=== PATIENT | female | born 1985 | race Hispanic/Latino ===

== ENCOUNTER 2023-05-05 04:55 | Emergency (ER) | payer MEDICAID, OTHER ==
[~2023-05-05] VITALS: Ht 167.6 cm; Wt 91.7 kg
[2023-05-05 05:22] LABS: BASOPHILS % (AUTO) 0.3 % (0.0-5.0); EOSINOPHILS % (AUTO) 1.2 % (0.0-8.0); HEMATOCRIT 44.8 % (36-48); MEAN CORPUSCULAR HEMOGLOBIN 31.2 pg (27.0-33.0); MEAN CORPUSCULAR VOLUME 89.1 fL (79-99); MONOCYTES % (AUTO) 9.4 % (3.0-13.0); NEUTROPHILS % (AUTO) 78.5 % (40.0-77.0); PLATELET COUNT (AUTO) 263 K/uL (130-400); RED BLOOD CELL COUNT(AUTO) 5.03 MIL/uL (4.00-5.50); RED CELL DISTRIBUTION WIDTH 13.1 % (11.0-15.5); WHITE BLOOD COUNT (AUTO) 12.1 K/uL (4.8-10.8)
[2023-05-05] MEDS ORDERED: ONDANSETRON 4MG INJ ONE (05:25)
[2023-05-05] MEDS ORDERED: LACTATED RINGERS 1000ML 1,000 ML IV ONE (05:30)
[2023-05-05] MEDS ORDERED: MORPHINE 2 MG SYG IVP ONE (05:30)
[2023-05-05 05:36] LABS: ALANINE AMINOTRANSFERASE 17 U/L (12-78); ALBUMIN 3.9 g/dL (3.5-5.0); AMYLASE 29 U/L (25-115); ASPARTATE AMINOTRANSFERASE 11 U/L (10-37); CARBON DIOXIDE 18 mmol/L (21-32); CHLORIDE 96 mmol/L (101-111); CREATININE 0.7 mg/dL (0.5-1.5); GLOMERULAR FILTR. RATE CALC 114 mL/min (>90); GLUCOSE,RANDOM 117 mg/dL (70-105); SODIUM SERUM 133 mmol/L (136-145); TOTAL PROTEIN, SERUM 8.5 g/dL (6.0-8.3); UREA NITROGEN, BLOOD 8 mg/dL (7-18)
[2023-05-05 05:38] LABS: LIPASE < 50 U/L (114-286); POTASSIUM 2.7 mmol/L (3.5-5.1)
[2023-05-05] MEDS ORDERED: IOHEXOL 350 MG/ML 100ML INFUS..BTL IV ONE (06:48)
[2023-05-05] MEDS ORDERED: POTASSIUM CHLORIDE 20MEQ/10ML 10 MEQ in 0.9%NACL 50ML 50 ML IV SCH (07:00)
[2023-05-05] MEDS ORDERED: POTASSIUM BICARB/CIT AC 25 MEQ TABLET.EFF PO ONE (07:00)
[2023-05-05] MEDS ORDERED: POTASSIUM CHLORIDE 20MEQ/100ML 0 ML IV ONE (07:26)
[2023-05-05 07:39] VITALS: BP 134/80
[2023-05-05] MEDS ORDERED: POTASSIUM CHLORIDE 10MEQ/100ML 100 ML IV SCH (08:00)
[2023-05-05] MEDS ORDERED: POLY17PO4 PO (09:56)
[2023-05-05] MEDS ORDERED: LACTULOSE 20 GM/30 ML UDCUP PO ONE (10:00)
== END 2023-05-05 13:36 | disposition home or self-care (01) ==
LOC: EDH 04:55
DX: K59.00 Constipation, unspecified (principal); I10 Essential (primary) hypertension; Z98.890 Other specified postprocedural states
CPT/HCPCS: 99285; 74177; 96365; 71045; 96361; 96375; 96366; 82150; 83735; 80053; 84703; 83690; 85025; 36415; J7120; J2270; J2405; Q9967; J3480

== ENCOUNTER 2023-05-06 20:43 | Inpatient (IN) | payer OTHER ==
[~2023-05-06] VITALS: Ht 167.6 cm; Wt 91.2 kg
[~2023-05-06 20:43] MED LIST: POLY17PO4 PO
[2023-05-06 21:26] LABS: BASOPHILS % (AUTO) 0.4 % (0.0-5.0); EOSINOPHILS % (AUTO) 0.3 % (0.0-8.0); HEMATOCRIT 42.1 % (36-48); LYMPHOCYTES % (AUTO) 9.8 % (21.0-51.0); MEAN CORPUSCULAR HEMOGLOBIN 31.4 pg (27.0-33.0); MEAN CORPUSCULAR HGB CONC 35.4 g/dL (32.0-36.0); MEAN CORPUSCULAR VOLUME 88.8 fL (79-99); MONOCYTES % (AUTO) 9.8 % (3.0-13.0); NEUTROPHILS % (AUTO) 79.5 % (40.0-77.0); PLATELET COUNT (AUTO) 252 K/uL (130-400); RED BLOOD CELL COUNT(AUTO) 4.74 MIL/uL (4.00-5.50); WHITE BLOOD COUNT (AUTO) 9.3 K/uL (4.8-10.8)
[2023-05-06 21:44] LABS: ALBUMIN 3.6 g/dL (3.5-5.0); CREATININE 0.7 mg/dL (0.5-1.5); MAGNESIUM 1.7 mg/dL (1.80-2.40)
[2023-05-06 21:45] LABS: POTASSIUM 2.8 mmol/L (3.5-5.1)
[2023-05-07] MEDS ORDERED: POTASSIUM BICARB/CIT AC 25 MEQ TABLET.EFF PO ONE (02:00)
[2023-05-07] MEDS ORDERED: LACTATED RINGERS 1000ML 1,000 ML IV ONE (02:00)
[2023-05-07] MEDS ORDERED: LACTULOSE 20 GM/30 ML UDCUP PO ONE (02:30)
[2023-05-07] MEDS ORDERED: MAGNESIUM 2GM PREMIX 50ML 50 ML IV ONE (02:56)
[2023-05-07] MEDS ORDERED: IBUPROFEN 600 MG TABLET ONE (02:56)
[2023-05-07] MEDS ORDERED: ONDANSETRON 4MG INJ IV PRN (03:00)
[2023-05-07] MEDS ORDERED: ACETAMINOPHEN 325 MG TAB PO PRN (03:00)
[2023-05-07] MEDS ORDERED: NITROGLYCERIN 0.4 MG SL TAB SL PRN (03:00)
[2023-05-07] MEDS ORDERED: IBUPROFEN 600 MG TABLET PO ONE (03:00)
[2023-05-07] MEDS: MAGNESIUM 2GM PREMIX 50ML 50 ML IV SCH (04:20)
[2023-05-07] MEDS: 0.9%NACL 1000ML 1,000 ML IV SCH ×2 (05:27→13:09)
[2023-05-07] MEDS ORDERED: POTASSIUM CHLORIDE 10% ELIXIR 20 MEQ/15 ML UDCUP PO PRN (05:30)
[2023-05-07] MEDS ORDERED: MAGNESIUM 2GM PREMIX 50ML 50 ML IV PRN (05:30)
[2023-05-07] MEDS ORDERED: POTASSIUM CHLORIDE 20MEQ/100ML 100 ML IV PRN (05:30)
[2023-05-07 07:52] LABS: HEMATOCRIT 40.7 % (36-48); MEAN CORPUSCULAR HEMOGLOBIN 30.8 pg (27.0-33.0); MEAN CORPUSCULAR HGB CONC 35.1 g/dL (32.0-36.0); MEAN CORPUSCULAR VOLUME 87.5 fL (79-99); RED BLOOD CELL COUNT(AUTO) 4.65 MIL/uL (4.00-5.50); RED CELL DISTRIBUTION WIDTH 13.2 % (11.0-15.5); WHITE BLOOD COUNT (AUTO) 9.3 K/uL (4.8-10.8)
[2023-05-07 08:18] LABS: ALBUMIN 3.4 g/dL (3.5-5.0); CREATININE 0.7 mg/dL (0.5-1.5); MAGNESIUM 2.1 mg/dL (1.80-2.40); TOTAL PROTEIN, SERUM 7.3 g/dL (6.0-8.3)
[2023-05-07 08:40] LABS: POTASSIUM 2.8 mmol/L (3.5-5.1)
[2023-05-07] MEDS: POLYETHYLENE GLYCOL 3350 17 GM POWD.PACK PO SCH (09:29)
[2023-05-07] MEDS: FAMOTIDINE 20MG TAB PO SCH ×2 (09:29→20:39)
[2023-05-07] MEDS: ENOXAPARIN SODIUM 40 MG/0.4 ML SYRINGE SQ SCH (09:30)
[2023-05-07 12:00] VITALS: BP 117/76
[2023-05-07 16:00] VITALS: BP 117/76
[2023-05-07] MEDS: ACETAMINOPHEN 325 MG TAB PO PRN (16:13)
[2023-05-07 16:56] LABS: HEMATOCRIT 37.3 % (36-48)
[2023-05-07] MEDS: KCL 20 MEQ ERTAB PO PRN ×2 (18:06→23:18)
[2023-05-07] MEDS ORDERED: KCL 20 MEQ ERTAB PO ONE (20:00)
[2023-05-07 20:25] VITALS: BP 131/69
[2023-05-07] MEDS ORDERED: HYDROCODONE/ACETAMINOPHEN 5/325 MG TAB PO ONE (22:00)
[2023-05-07 23:59] VITALS: BP 133/71
[2023-05-08] MEDS: KCL 20 MEQ ERTAB PO PRN ×6 (00:31→07:45)
[2023-05-08] MEDS: ACETAMINOPHEN 325 MG TAB PO PRN (04:17)
[2023-05-08 05:00] LABS: BASOPHILS % (AUTO) 0.6 % (0.0-5.0); EOSINOPHILS % (AUTO) 1.5 % (0.0-8.0); HEMATOCRIT 37.8 % (36-48); LYMPHOCYTES % (AUTO) 24.7 % (21.0-51.0); MEAN CORPUSCULAR HEMOGLOBIN 31.4 pg (27.0-33.0); MEAN CORPUSCULAR HGB CONC 34.7 g/dL (32.0-36.0); MEAN CORPUSCULAR VOLUME 90.6 fL (79-99); MONOCYTES % (AUTO) 11.7 % (3.0-13.0); NEUTROPHILS % (AUTO) 61.2 % (40.0-77.0); PLATELET COUNT (AUTO) 229 K/uL (130-400); RED BLOOD CELL COUNT(AUTO) 4.17 MIL/uL (4.00-5.50); RED CELL DISTRIBUTION WIDTH 13.1 % (11.0-15.5); WHITE BLOOD COUNT (AUTO) 7.9 K/uL (4.8-10.8)
[2023-05-08 05:02] VITALS: BP 144/72
[2023-05-08 05:08] LABS: CREATININE 0.6 mg/dL (0.5-1.5); MAGNESIUM 1.7 mg/dL (1.80-2.40); POTASSIUM 3.8 mmol/L (3.5-5.1)
[2023-05-08 05:25] LABS: APPEARANCE,URINE CLEAR (CLEAR); BILIRUBIN,URINE NEGATIVE (NEGATIVE); COLOR,URINE LIGHT-YELLOW (YELLOW); GLUCOSE, URINE (UA) NEGATIVE (NEGATIVE); KETONES,URINE 150 mg/dL (NEGATIVE); LEUKOCYTE ESTERASE ,URINE NEGATIVE Leu/uL (NEGATIVE); NITRATE,URINE NEGATIVE (NEGATIVE); OCCULT BLOOD,URINE SMALL (NEGATIVE); PH,URINE 6.5 (5.0-8.0); PROTEIN,URINE 20 mg/dL (NEGATIVE); UROBILINOGEN,URINE 0.2 mg/dL (0.2-1.0)
[2023-05-08 05:30] LABS: MUCUS,URINE RARE LPF (None Seen); SQUAMOUS EPITHELIAL CELL,UR RARE /HPF (0-2)
[2023-05-08 05:34] LABS: HCG,QUALITATIVE URINE NEGATIVE (NEGATIVE)
[2023-05-08] MEDS: MAGNESIUM 2GM PREMIX 50ML 50 ML IV SCH (05:48)
[2023-05-08] MEDS: ENOXAPARIN SODIUM 40 MG/0.4 ML SYRINGE SQ SCH (07:18)
[2023-05-08] MEDS: FAMOTIDINE 20MG TAB PO SCH ×2 (07:45→20:18)
[2023-05-08] MEDS: POLYETHYLENE GLYCOL 3350 17 GM POWD.PACK PO SCH (07:45)
[2023-05-08] MEDS: 0.9%NACL 1000ML 1,000 ML IV SCH ×2 (07:45→18:16)
[2023-05-08 07:58] VITALS: BP 130/79
[2023-05-08] MEDS ORDERED: HYDROCORTISONE 25 MG SUPPOSITORY PR PRN (11:00)
[2023-05-08 11:27] VITALS: BP 108/62
[2023-05-08 16:18] VITALS: BP 122/72
[2023-05-08] MEDS ORDERED: PEG 3350/NA SULF,BICARB,CL/KCL 4000 ML SOLN PO ONE (18:00)
[2023-05-08 20:06] VITALS: BP 127/88
[2023-05-08 23:20] VITALS: BP 130/84
[2023-05-09 04:13] VITALS: BP 107/64
[2023-05-09 05:48] LABS: HEMATOCRIT 34.9 % (36-48); MEAN CORPUSCULAR HEMOGLOBIN 31.3 pg (27.0-33.0); MEAN CORPUSCULAR HGB CONC 34.7 g/dL (32.0-36.0); MEAN CORPUSCULAR VOLUME 90.2 fL (79-99); RED BLOOD CELL COUNT(AUTO) 3.87 MIL/uL (4.00-5.50); RED CELL DISTRIBUTION WIDTH 13.3 % (11.0-15.5); WHITE BLOOD COUNT (AUTO) 5.7 K/uL (4.8-10.8)
[2023-05-09 05:52] LABS: CREATININE 0.5 mg/dL (0.5-1.5); POTASSIUM 3.5 mmol/L (3.5-5.1)
[2023-05-09] MEDS: 0.9%NACL 1000ML 1,000 ML IV SCH (06:09)
[2023-05-09] MEDS: KCL 20 MEQ ERTAB PO PRN ×2 (06:09→09:04)
[2023-05-09 08:00] VITALS: BP 129/77
[2023-05-09] MEDS: ENOXAPARIN SODIUM 40 MG/0.4 ML SYRINGE SQ SCH (09:03)
[2023-05-09] MEDS: FAMOTIDINE 20MG TAB PO SCH (09:04)
[2023-05-09] MEDS: MAGNESIUM 2GM PREMIX 50ML 50 ML IV SCH (09:04)
[2023-05-09] MEDS: POLYETHYLENE GLYCOL 3350 17 GM POWD.PACK PO SCH (09:05)
[2023-05-09] MEDS ORDERED: HYDR25SU7 RC (09:29)
[2023-05-09 11:04] VITALS: BP 109/69
== END 2023-05-09 13:00 | disposition home or self-care (01) | DRG 390 ==
LOC: EDH 20:43 → EDHIP 20:44 → OBSVTOIN 20:44 → 4BH 05-07 09:50
PROVIDERS: ADMIT Hospitalist; ATTEND Hospitalist
DX: K56.41 Fecal impaction (principal); E87.6 Hypokalemia; E83.42 Hypomagnesemia; I10 Essential (primary) hypertension; K62.89 Other specified diseases of anus and rectum; E66.9 Obesity, unspecified; Z68.32 Body mass index [BMI] 32.0-32.9, adult; Z98.84 Bariatric surgery status
CPT/HCPCS: 36415; 74018; 80048; 80053; 81001; 81025; 82270; 83605; 83735; 84132; 85014; 85018; 85025; 85027; 86850; 86900; 86901; 93005; G0378; J1650; J3475; J3480